=== PATIENT | female | born 1980 | race Caucasian/White ===

== ENCOUNTER 2017-10-24 22:45 | Emergency (ER) | payer MEDICAID ==
[~2017-10-24] VITALS: Ht 170.2 cm; Wt 77.1 kg
[2017-10-24 23:15] VITALS: BP_SYST 131
[2017-10-25] MEDS ORDERED: ACETAMINOPHEN 500 MG TABLET PO ONE (00:15)
[2017-10-25] MEDS ORDERED: OSELTAMIVIR PHOSPHATE 75 MG CAPSULE PO ONE (00:15)
[2017-10-25] MEDS ORDERED: IBUPROFEN 800 MG TABLET PO ONE (00:15)
[2017-10-25 00:26] VITALS: BP_SYST 131
== END 2017-10-25 00:26 | disposition home or self-care (01) ==
LOC: SED 22:45
DX: J10.1 Influenza due to other identified influenza virus with other respiratory manifestations (principal)
CPT/HCPCS: 36415; 86710; 99284; G9035; J7030

== ENCOUNTER 2018-06-20 23:47 | Emergency (ER) | payer MEDICAID ==
[~2018-06-20] VITALS: Ht 167.6 cm; Wt 77.1 kg
[2018-06-20 23:50] VITALS: BP_SYST 124
--- NOTE | 2018-06-20 23:50 | NUR ---
Placed in room 07 . To gown for exam. Side rails up. Report given to CORI Queen.
--- NOTE | 2018-06-20 23:54 | NUR ---
Pt is AAOx4 and ambulatory. Per pt she has had itchiness, burning, and white discharge from vagina x2days. Pt denies any foul odors. Pt also denies any new sexual partners and states she is not concerned about an STI. Pt states 7/10 vaginal pain at this time. Will continue to monitor pt.
--- NOTE | 2018-06-21 00:18 | NUR ---
Pt requesting to have accucheck done. Blood glucose 101 at this time. Will continue to monitor pt.
[2018-06-21 00:20] LABS: BILIRUBIN,URINE NEGATIVE (NEGATIVE); BLOOD, URINE 3+ (NEGATIVE); COLOR,URINE YELLOW (YELLOW); GLUCOSE,URINE NEGATIVE (NEGATIVE); KETONES,URINE NEGATIVE (NEGATIVE); LEUKOCYTE ESTERASE ,URINE 2+ (NEGATIVE); NITRITE, URINE NEGATIVE (NEGATIVE); PROTEIN URINE TRACE (NEGATIVE); UROBILINOGEN,URINE 0.2 (0.2-1.0)
--- NOTE | 2018-06-21 00:20 | NUR ---
ER at bedside examining patient.
[2018-06-21] MEDS ORDERED: LEVOFLOXACIN 500 MG TABLET PO ONE (00:30)
[2018-06-21] MEDS ORDERED: PHENAZOPYRIDINE HCL 100 MG TABLET PO ONE (00:30)
[2018-06-21 00:33] VITALS: BP_SYST 122
--- NOTE | 2018-06-21 00:33 | NUR ---
Patient given written and verbal discharge instructions and verbalizes understanding. ER MD discussed with patient the results and treatment provided. Patient in stable condition. ID arm band removed. Rx of Cipro and Pyridium given. Patient educated on pain management and to follow up with PMD. Pain Scale 0/10. Opportunity for questions provided and answered. Medication side effect fact sheet provided.
[2018-06-21 00:35] LABS: BACTERIA,URINE MODERATE /HPF (None Seen); RBC,URINE 20-50 /HPF (0-3); WBC,URINE 20-50 /HPF (0-3)
[2018-06-21 00:36] LABS: CLARITY/URINE SLIGHTLY HAZY (CLEAR); MUCUS,URINE 2+ /LPF (None Seen)
== END 2018-06-21 00:33 | disposition home or self-care (01) ==
LOC: SED 23:47
DX: N39.0 Urinary tract infection, site not specified (principal)
CPT/HCPCS: 81000-TC; 87086; 99284

== ENCOUNTER 2019-01-01 16:44 | Emergency (ER) | payer MEDICAID ==
[~2019-01-01] VITALS: Ht 167.6 cm; Wt 78.0 kg
[2019-01-01 16:45] VITALS: BP_SYST 112
--- NOTE | 2019-01-01 16:45 | NUR ---
TRIAGED AND PLACED BACK INTO WAITING ROOM, AWAITING XRAY.
--- NOTE | 2019-01-01 16:50 | NUR ---
DR ESTRELLA AT BEDSIDE FOR EVALUATION
--- NOTE | 2019-01-01 16:51 | NUR ---
PT STATES THAT HER SON WAS IN GROCERY CART AND IT STARTED TO TIP OVER, SHE HAD INJURY TO RIGHT WRIST. +SWELLING AND +PAIN, STATES SHE IS UNABLE TO MOVE WRIST DUE TO PAIN.
--- NOTE | 2019-01-01 17:01 | NUR ---
TAKEN TO RADIOLOGY AMBULATORY
[2019-01-01 17:40] VITALS: BP_SYST 116
--- NOTE | 2019-01-01 17:41 | NUR ---
Patient given written and verbal discharge instructions and verbalizes understanding. ER MD discussed with patient the results and treatment provided. Patient in stable condition. ID arm band removed. Rx of MOTRIN given. Patient educated on pain management and to follow up with PMD. Pain Scale 0/10. Opportunity for questions provided and answered. Medication side effect fact sheet provided.
== END 2019-01-01 17:41 | disposition home or self-care (01) ==
LOC: SED 16:44
DX: S63.501A Unspecified sprain of right wrist, initial encounter (principal); W20.8XXA Other cause of strike by thrown, projected or falling object, initial encounter; Y93.89 Activity, other specified; Y92.89 Other specified places as the place of occurrence of the external cause; Y99.8 Other external cause status
CPT/HCPCS: 99283

== ENCOUNTER 2020-09-16 13:06 | Emergency (ER) | payer MEDICAID ==
[~2020-09-16] VITALS: Ht 165.1 cm; Wt 63.5 kg
[2020-09-16 13:33] VITALS: BP_SYST 134
== END 2020-09-16 16:04 | disposition left against medical advice (07) ==
LOC: SED 13:06
DX: F41.9 Anxiety disorder, unspecified (principal); Z53.21 Procedure and treatment not carried out due to patient leaving prior to being seen by health care provider

== ENCOUNTER 2021-04-30 12:51 | Emergency (ER) | payer MEDICAID ==
[~2021-04-30] VITALS: Ht 165.1 cm; Wt 59.0 kg
[2021-04-30 13:01] VITALS: BP_SYST 119
--- NOTE | 2021-04-30 13:03 | NUR ---
Patient to ER bed 6 to gown for evaluation. Side rails up.
--- NOTE | 2021-04-30 13:09 | NUR ---
Pt. came in with c/o pain 04/29 to left wrist, stated was shopping at [employer] and a manaquin fell and to protect her kids she tried to stop it and it hit her wrist.
--- NOTE | 2021-04-30 13:11 | NUR ---
radiology at bedside for xray
--- NOTE | 2021-04-30 13:24 | NUR ---
ice pack to wrist
--- NOTE | 2021-04-30 13:43 | NUR ---
ER at bedside examining patient.
[2021-04-30] MEDS ORDERED: IBUPROFEN 600 MG TABLET PO ONE (13:45)
[2021-04-30] MEDS ORDERED: KETOROLAC TROMETHAMINE 60 MG/2 ML VIAL IM ONE (13:45)
[2021-04-30 14:06] VITALS: BP_SYST 103
--- NOTE | 2021-04-30 14:07 | NUR ---
Patient given written and verbal discharge instructions and verbalizes understanding. ER MD discussed with patient the results and treatment provided. Patient in stable condition. ID arm band removed. Patient educated on pain management and to follow up with PMD. Pain Scale 3. Opportunity for questions provided and answered. Medication side effect fact sheet provided.
== END 2021-04-30 14:06 | disposition home or self-care (01) ==
LOC: SED 12:51
DX: M25.531 Pain in right wrist (principal); W20.8XXA Other cause of strike by thrown, projected or falling object, initial encounter; Y93.89 Activity, other specified; Y92.89 Other specified places as the place of occurrence of the external cause; Y99.8 Other external cause status
CPT/HCPCS: 99283

== ENCOUNTER 2021-05-30 17:00 | Emergency (ER) | payer MEDICAID ==
[~2021-05-30] VITALS: Ht 165.1 cm; Wt 59.0 kg
[2021-05-30 17:09] VITALS: BP_SYST 114
[2021-05-30 18:10] LABS: BASOPHILS % (AUTO) 0.4 % (0.0-2.0); CALCIUM 8.8 mg/dL (8.4-11.0); CREATININE 0.69 mg/dL (0.55-1.30); EOSINOPHILS # (AUTO) 0.2 K/uL (0.0-0.4); EOSINOPHILS % (AUTO) 1.6 % (0.0-4.0); HEMATOCRIT 37.3 % (36-48); HEMOGLOBIN 12.4 g/dL (12.0-16.0); LYMPHOCYTES # (AUTO) 3.2 K/uL (1.0-5.5); LYMPHOCYTES % (AUTO) 34.5 % (20.5-51.5); MEAN CORPUSCULAR HEMOGLOBIN 29 pg (27-31); MEAN CORPUSCULAR HGB CONC 33 % (32-36); MEAN CORPUSCULAR VOLUME 88 fL (79.0-98.0); MONOCYTES # (AUTO) 0.6 K/uL (0.0-1.0); MONOCYTES % (AUTO) 6.5 % (1.7-9.3); NEUTROPHILS # (AUTO) 5.3 K/uL (1.8-7.7); PLATELET COUNT (AUTO) 199 K/uL (130-430); POTASSIUM 3.7 mmol/L (3.5-5.1); RED BLOOD CELL COUNT(AUTO) 4.22 MIL/uL (4.2-6.2); RED CELL DISTRIBUTION WIDTH 12.5 % (9.0-15.0); WHITE BLOOD COUNT (AUTO) 9.4 K/uL (4.8-10.8)
[2021-05-30 18:16] LABS: ALBUMIN 3.5 g/dL (3.4-4.8); TOTAL BILIRUBIN 0.3 mg/dL (0.0-1.0)
[2021-05-30 18:51] VITALS: BP_SYST 108
== END 2021-05-30 18:51 | disposition home or self-care (01) ==
LOC: SED 17:00
DX: R07.9 Chest pain, unspecified (principal)
CPT/HCPCS: 36415; 71045; 80053; 84484; 85025; 93005; 99285

== ENCOUNTER 2021-07-25 08:37 | Emergency (ER) | payer MEDICAID ==
[~2021-07-25] VITALS: Ht 165.1 cm; Wt 59.0 kg
[2021-07-25 08:55] VITALS: BP_SYST 132
--- NOTE | 2021-07-25 09:28 | NUR ---
PT COMES TO ER WITH C/O PRURITIS ALL OVER BODY FOR 2 DAYS. DENIES ANY NEW FOOD/MEDS. DENIES BEING OUTDOORS RECENTLY. DENIES ANY FEVERS/CHILLS/VOMITING/DIARRHEA. NO RASH SEEN. RESP EVEN AND UNLABORED, ON RA @99% LS-CLEAR.
[2021-07-25] MEDS ORDERED: VIS50 PO (09:34)
[2021-07-25] MEDS ORDERED: PERM60CR18 TP (09:34)
--- NOTE | 2021-07-25 09:51 | NUR ---
Note undone in EDM - 07/25/21 at 1014 by [email or web address] RECEIVED PTADAM FROM HOME. PER [facility] [employer] REPORT, PT'S DT CALLED PT AND HE SOUNDED CONFUSED SO SHE CALLED 911. PT AWAKE, ALERT TO NAME ONLY, CONFUSED. IN NAD. RESP EVEN AND UNLABORED, ON RA @99%. DENIES ANY CP OR SOB, DENIES ANY MEDICAL HISTORY, ALTHOUGH METFORMIN PILLS CAME WITH HIM. SKIN W/D/I. BP 152/105, DENIES HEADACHE, DIZZINESS. NEURO CHECKS INTACT. NO FAMILY CONTACT AVAILABLE. SAFETY MESAURES IN PLACE. WAITING FOR ER MD [place].
--- NOTE | 2021-07-25 09:51 | NUR ---
DR MARIAM CASSIDY FOR EXAM
--- NOTE | 2021-07-25 10:06 | NUR ---
Patient given written and verbal discharge instructions and verbalizes understanding. ER MD discussed with patient the results and treatment provided. Patient in stable condition. ID arm band removed. Rx of PREMETHERIN, HYDROXYZINE given. Patient educated on pain management and to follow up with PMD. Pain Scale . Opportunity for questions provided and answered. Medication side effect fact sheet provided.
--- NOTE | 2021-07-25 10:13 | NUR ---
Dre zuniga in [facility] - 07/25/21 at [email or web address] BECERRA IN ROOM FOR EXAM
[2021-07-25 10:23] VITALS: BP_SYST 139
== END 2021-07-25 10:23 | disposition home or self-care (01) ==
LOC: SED 08:37
DX: L29.9 Pruritus, unspecified (principal); Z79.899 Other long term (current) drug therapy
CPT/HCPCS: 99283

== ENCOUNTER 2022-05-13 02:06 | Emergency (ER) | payer MEDICAID ==
[~2022-05-13] VITALS: Ht 167.6 cm; Wt 59.0 kg
[~2022-05-13 02:06] MED LIST: PERM60CR18 TP; VIS50 PO
[2022-05-13 02:11] VITALS: BP_SYST 102
[2022-05-13] MEDS ORDERED: predniSONE 20 MG TABLET PO ONE (02:30)
[2022-05-13] MEDS ORDERED: DIPHENHYDRAMINE HCL 12.5 MG/5 ML UDC PO ONE (02:30)
[2022-05-13] MEDS ORDERED: DIPH25CA83 PO ×3 (02:32→03:03)
[2022-05-13] MEDS ORDERED: PRED20TA PO ×3 (02:32→03:03)
[2022-05-13] MEDS ORDERED: DEXAMETHASONE SOD PHOSPHATE 10 MG/ML VIAL IM ONE (02:45)
[2022-05-13 03:17] VITALS: BP_SYST 120
== END 2022-05-13 03:15 | disposition home or self-care (01) ==
LOC: SED 02:06
DX: L50.9 Urticaria, unspecified (principal); E78.5 Hyperlipidemia, unspecified; Z79.899 Other long term (current) drug therapy
CPT/HCPCS: 99283; 96372; J1100